=== PATIENT | female | born 1970 | race Asian ===

== ENCOUNTER 2022-10-26 22:35 | Inpatient (IN) | payer SELFPAY ==
[~2022-10-26] VITALS: Ht 162.6 cm; Wt 67.8 kg
[2022-10-26] MEDS ORDERED: AMLO-257 PO (22:43)
[2022-10-26] MEDS ORDERED: LOSA-381 PO (22:43)
[2022-10-26] MEDS ORDERED: NITROPRUSSIDE SODIUM 50 MG in DEXTROSE 5%-WATER 248 ML IV PRN (23:00)
[2022-10-26 23:04] LABS: BASOPHILS % (AUTO) 0.3 % (0.0-2.0); EOSINOPHILS % (AUTO) 2.1 % (1.0-6.0); HEMATOCRIT 43.5 % (36-46); LYMPHOCYTES # (AUTO) 4.3 K/uL (1.0-4.8); LYMPHOCYTES % (AUTO) 29.4 % (22.0-44.0); MEAN CORPUSCULAR HEMOGLOBIN 27.2 pg (26.0-34.0); MEAN CORPUSCULAR HGB CONC 32.2 G/dL (31.0-37.0); MEAN CORPUSCULAR VOLUME 84 fL (80-100); MONOCYTES # (AUTO) 0.6 K/uL (0.1-1.0); MONOCYTES % (AUTO) 4.1 % (2.0-9.0); NEUTROPHILS # (AUTO) 9.5 K/uL (1.8-7.7); NEUTROPHILS % (AUTO) 64.1 % (40.0-70.0); PLATELET COUNT (AUTO) 276 K/uL (150-450); RED BLOOD CELL COUNT(AUTO) 5.16 MIL/uL (4.00-5.20); RED CELL DISTRIBUTION WIDTH 13.4 % (11.5-14.5)
[2022-10-26 23:25] LABS: ALBUMIN 4.3 g/dL (3.4-5.0); BILIRUBIN,TOTAL 0.5 mg/dL (0.1-1.0); CALCIUM, TOTAL 9.5 mg/dL (8.8-10.5); CREATININE 1.05 mg/dL (0.60-1.30); TOTAL PROTEIN, SERUM 8.9 g/dL (6.4-8.2)
[2022-10-26 23:26] LABS: INR 0.9 (0.9-1.1); PROTHROMBIN TIME 9.8 SEC (9.4-11.6)
[2022-10-26 23:27] LABS: POTASSIUM 2.8 mmol/L (3.5-5.1)
[2022-10-26] MEDS: POTASSIUM CHL 10 MEQ/WATER 50 ML IV SCH (23:37)
[2022-10-26 23:56] LABS: MAGNESIUM 2.1 mg/dL (1.80-2.40)
[2022-10-27] MEDS: POTASSIUM CHL 10 MEQ/WATER 50 ML IV SCH ×3 (01:08→02:48)
[2022-10-27] MEDS ORDERED: ONDANSETRON HCL 4 MG/2 ML VIAL IVP PRN ×2 (01:30→10:45)
[2022-10-27] MEDS ORDERED: ACETAMINOPHEN 325 MG TABLET PO PRN ×2 (01:30→10:45)
[2022-10-27] MEDS ORDERED: 0.9% SODIUM CHLORIDE 10 ML SYRINGE IVP PRN (01:30)
[2022-10-27 02:39] LABS: APPEARANCE,URINE CLEAR (CLEAR); BILIRUBIN,URINE NEGATIVE (NEGATIVE); GLUCOSE, URINE (UA) 150-200 mg/dL (NEGATIVE); KETONES,URINE NEGATIVE (NEGATIVE); LEUKOCYTE ESTERASE ,URINE TRACE (NEGATIVE); NITRATE,URINE NEGATIVE (NEGATIVE); OCCULT BLOOD,URINE NEGATIVE (NEGATIVE); PH,URINE 7.5 (5.0-8.0); PROTEIN,URINE 100-200,SEE CONFIRM mg/dL (NEGATIVE); SPECIFIC GRAVITIY, URINE 1.011 (1.003-1.030); UROBILINOGEN,URINE <=1.0 mg/dL (<=1.0)
[2022-10-27 02:53] LABS: SULFOSALICYLIC ACID,URINE 1+ (Negative)
[2022-10-27 02:54] LABS: BACTERIA,URINE None Seen /HPF (None Seen); RBC,URINE None Seen /HPF (0-2); SQUAMOUS EPITHELIAL CELL,UR Rare /LPF (None Seen); WBC,URINE 0-2 /HPF (0-5)
[2022-10-27 06:31] LABS: ANION GAP 14 mmol/L (8-16); CALCIUM, TOTAL 9.5 mg/dL (8.8-10.5); CARBON DIOXIDE 23 mmol/L (22-29); CHLORIDE 102 mmol/L (98-107); CREATININE 0.94 mg/dL (0.60-1.30); GLOMERULAR FILTR. RATE CALC > 60 mL/min (>60); GLUCOSE,RANDOM 134 mg/dL (70-110); SODIUM SERUM 139 mmol/L (136-145)
[2022-10-27 06:36] LABS: ALANINE AMINOTRANSFERASE 15 U/L (12-78); ALKALINE PHOSPHATASE 97 U/L (46-116); ASPARTATE AMINOTRANSFERASE 39 U/L (15-37); BILIRUBIN,TOTAL 0.7 mg/dL (0.1-1.0); TOTAL PROTEIN, SERUM 8.2 g/dL (6.4-8.2)
[2022-10-27] MEDS ORDERED: ZOLPIDEM TARTRATE 5 MG TABLET PO PRN (10:45)
[2022-10-27] MEDS ORDERED: HYDROCODONE/ACETAMINOPHEN 5-325 MG TABLET PO PRN (10:45)
[2022-10-27] MEDS ORDERED: BISACODYL 10 MG RECTAL RECTAL SUPPOSITORY PR PRN (10:45)
[2022-10-27] MEDS ORDERED: MAGNESIUM HYDROXIDE SUSPENSION 30 ML UDCUP PO PRN (10:45)
[2022-10-27] MEDS ORDERED: MORPHINE SULFATE 2 MG/ML SYRINGE IVP PRN (10:45)
[2022-10-27] MEDS: NiCARDipine HCL 25 MG in SODIUM CHLORIDE 0.9% 240 ML IV PRN ×2 (11:52→21:36)
[2022-10-27] MEDS: DOCUSATE SODIUM 100 MG CAPSULE PO SCH (21:00)
[2022-10-28] VITALS: PULSE 86
[2022-10-28] MEDS: NiCARDipine HCL 25 MG in SODIUM CHLORIDE 0.9% 240 ML IV PRN ×3 (00:33→06:37)
[2022-10-28 04:00] VITALS: PULSE 83
[2022-10-28 06:03] LABS: BASOPHILS % (AUTO) 0.3 % (0.0-2.0); EOSINOPHILS % (AUTO) 0.4 % (1.0-6.0); HEMOGLOBIN 13.3 g/dL (12.0-16.0); LYMPHOCYTES # (AUTO) 3.2 K/uL (1.0-4.8); LYMPHOCYTES % (AUTO) 20.8 % (22.0-44.0); MEAN CORPUSCULAR HEMOGLOBIN 27.6 pg (26.0-34.0); MEAN CORPUSCULAR HGB CONC 32.4 G/dL (31.0-37.0); MEAN CORPUSCULAR VOLUME 85 fL (80-100); MONOCYTES # (AUTO) 0.7 K/uL (0.1-1.0); MONOCYTES % (AUTO) 4.2 % (2.0-9.0); NEUTROPHILS # (AUTO) 11.5 K/uL (1.8-7.7); NEUTROPHILS % (AUTO) 74.3 % (40.0-70.0); PLATELET COUNT (AUTO) 267 K/uL (150-450); RED BLOOD CELL COUNT(AUTO) 4.81 MIL/uL (4.00-5.20); RED CELL DISTRIBUTION WIDTH 13.6 % (11.5-14.5)
[2022-10-28 06:25] LABS: ALANINE AMINOTRANSFERASE 11 U/L (12-78); ALBUMIN 3.7 g/dL (3.4-5.0); ALKALINE PHOSPHATASE 93 U/L (46-116); ANION GAP 12 mmol/L (8-16); ASPARTATE AMINOTRANSFERASE 38 U/L (15-37); BILIRUBIN,TOTAL 1.1 mg/dL (0.1-1.0); CARBON DIOXIDE 25 mmol/L (22-29); CHLORIDE 105 mmol/L (98-107); CREATININE 0.87 mg/dL (0.60-1.30); GLOMERULAR FILTR. RATE CALC > 60 mL/min (>60); GLUCOSE,RANDOM 106 mg/dL (70-110); POTASSIUM 3.3 mmol/L (3.5-5.1); SODIUM SERUM 142 mmol/L (136-145); TOTAL PROTEIN, SERUM 7.4 g/dL (6.4-8.2)
[2022-10-28 06:27] LABS: ALANINE AMINOTRANSFERASE 13 U/L (12-78); ALBUMIN 3.7 g/dL (3.4-5.0); ALKALINE PHOSPHATASE 95 U/L (46-116); ANION GAP 9 mmol/L (8-16); ASPARTATE AMINOTRANSFERASE 39 U/L (15-37); BILIRUBIN,TOTAL 1.1 mg/dL (0.1-1.0); CALCIUM, TOTAL 9.1 mg/dL (8.8-10.5); CARBON DIOXIDE 24 mmol/L (22-29); CHLORIDE 105 mmol/L (98-107); CREATININE 0.86 mg/dL (0.60-1.30); GLOMERULAR FILTR. RATE CALC > 60 mL/min (>60); GLUCOSE,RANDOM 106 mg/dL (70-110); POTASSIUM 3.2 mmol/L (3.5-5.1); SODIUM SERUM 138 mmol/L (136-145); TOTAL PROTEIN, SERUM 7.5 g/dL (6.4-8.2)
[2022-10-28] MEDS ORDERED: POTASSIUM CHL 10 MEQ/WATER 50 ML IV PRN (07:30)
[2022-10-28] MEDS ORDERED: POTASSIUM CHLORIDE 20 MEQ ER TABLET PO PRN ×2 (07:30)
[2022-10-28 08:00] VITALS: PULSE 103
[2022-10-28] MEDS: AmLODIPine BESYLATE 5 MG TABLET PO SCH (09:25)
[2022-10-28] MEDS: PANTOPRAZOLE SODIUM 40 MG DR TABLET PO SCH (09:25)
[2022-10-28] MEDS: DOCUSATE SODIUM 100 MG CAPSULE PO SCH ×2 (09:25→21:02)
[2022-10-28] MEDS: LOSARTAN POTASSIUM 25 MG TABLET PO SCH (09:26)
[2022-10-28 12:00] VITALS: PULSE 84
[2022-10-28] MEDS ORDERED: LABETALOL HCL 5 MG/ML 20 ML VIAL IVP ONE (14:51)
[2022-10-28] MEDS ORDERED: SODIUM CHLORIDE 0.9% 500 ML IV ONE (14:52)
[2022-10-28] MEDS: LABETALOL HCL 5 MG/ML 20 ML VIAL IVP PRN ×3 (15:06→21:02)
[2022-10-28 16:00] VITALS: PULSE 71
[2022-10-28 20:00] VITALS: BP 162/103; PULSE 71; RESP 14; TEMP 98.2
[2022-10-29] VITALS (7 sets, daily range): BP systolic 149–179; BP diastolic 93–111; PULSE 66–72; RESP 14–20; TEMP 98–98.3
[2022-10-29] MEDS: LABETALOL HCL 5 MG/ML 20 ML VIAL IVP PRN ×4 (05:11→18:42)
[2022-10-29 07:02] LABS: ANION GAP 12 mmol/L (8-16); CALCIUM, TOTAL 9.3 mg/dL (8.8-10.5); CARBON DIOXIDE 25 mmol/L (22-29); CHLORIDE 103 mmol/L (98-107); CREATININE 0.85 mg/dL (0.60-1.30); GLOMERULAR FILTR. RATE CALC > 60 mL/min (>60); GLUCOSE,RANDOM 105 mg/dL (70-110); POTASSIUM 4.1 mmol/L (3.5-5.1); SODIUM SERUM 140 mmol/L (136-145)
[2022-10-29] MEDS: DOCUSATE SODIUM 100 MG CAPSULE PO SCH ×2 (08:10→21:43)
[2022-10-29] MEDS: PANTOPRAZOLE SODIUM 40 MG DR TABLET PO SCH (08:10)
[2022-10-29] MEDS: LOSARTAN POTASSIUM 25 MG TABLET PO SCH (08:10)
[2022-10-29] MEDS: AmLODIPine BESYLATE 5 MG TABLET PO SCH (08:10)
[2022-10-29] MEDS: AmLODIPine BESYLATE 10 MG TABLET PO SCH (09:00)
[2022-10-29] MEDS ORDERED: LOSARTAN POTASSIUM 25 MG TABLET PO ONE (09:00)
[2022-10-29] MEDS ORDERED: LOSARTAN POTASSIUM 50 MG TABLET PO SCH (09:00)
[2022-10-29] MEDS ORDERED: AmLODIPine BESYLATE 5 MG TABLET PO ONE (09:00)
[2022-10-29] MEDS: CloNIDine HCL 0.1 MG TABLET PO PRN (13:33)
[2022-10-29] MEDS: LOSARTAN POTASSIUM 50 MG TABLET PO SCH (21:43)
[2022-10-30] VITALS (8 sets, daily range): BP systolic 136–179; BP diastolic 67–105; PULSE 62–70; RESP 18; TEMP 97.9–99.5
[2022-10-30] MEDS: LOSARTAN POTASSIUM 50 MG TABLET PO SCH ×2 (08:32→20:31)
[2022-10-30] MEDS: PANTOPRAZOLE SODIUM 40 MG DR TABLET PO SCH (08:32)
[2022-10-30] MEDS: AmLODIPine BESYLATE 10 MG TABLET PO SCH (08:32)
[2022-10-30] MEDS: DOCUSATE SODIUM 100 MG CAPSULE PO SCH ×2 (08:32→20:31)
[2022-10-30] MEDS: LABETALOL HCL 5 MG/ML 20 ML VIAL IVP PRN (12:30)
[2022-10-30 14:08] LABS: HEMOGLOBIN 14.1 g/dL (12.0-16.0); MONOCYTES # (AUTO) 0.5 K/uL (0.1-1.0); NEUTROPHILS # (AUTO) 7.7 K/uL (1.8-7.7)
[2022-10-30 14:15] LABS: BASOPHILS % (AUTO) 0.7 % (0.0-2.0); EOSINOPHILS % (AUTO) 1.6 % (1.0-6.0); HEMATOCRIT 43.3 % (36-46); LYMPHOCYTES # (AUTO) 2.2 K/uL (1.0-4.8); MEAN CORPUSCULAR HEMOGLOBIN 27.4 pg (26.0-34.0); MEAN CORPUSCULAR HGB CONC 32.5 G/dL (31.0-37.0); MEAN CORPUSCULAR VOLUME 84 fL (80-100); MONOCYTES % (AUTO) 4.3 % (2.0-9.0); NEUTROPHILS % (AUTO) 72.4 % (40.0-70.0); RED BLOOD CELL COUNT(AUTO) 5.14 MIL/uL (4.00-5.20); RED CELL DISTRIBUTION WIDTH 13.5 % (11.5-14.5)
[2022-10-30 15:21] LABS: PLATELET COUNT (AUTO) 260 K/uL (150-450); PLATELET MORPHOLOGY COMMENT LARGE PLTS PRESENT
[2022-10-30] MEDS ORDERED: HYDROCHLOROTHIAZIDE 25 MG TABLET PO ONE (15:30)
[2022-10-30] MEDS: CloNIDine HCL 0.1 MG TABLET PO PRN (15:54)
[2022-10-31 04:00] VITALS: BP 148/92; PULSE 61; RESP 16; TEMP 98.5
[2022-10-31 07:28] LABS: BASOPHILS % (AUTO) 0.3 % (0.0-2.0); EOSINOPHILS % (AUTO) 3.3 % (1.0-6.0); HEMATOCRIT 43.7 % (36-46); HEMOGLOBIN 14.2 g/dL (12.0-16.0); LYMPHOCYTES # (AUTO) 3.2 K/uL (1.0-4.8); MEAN CORPUSCULAR HEMOGLOBIN 27.6 pg (26.0-34.0); MEAN CORPUSCULAR HGB CONC 32.6 G/dL (31.0-37.0); MEAN CORPUSCULAR VOLUME 85 fL (80-100); MONOCYTES # (AUTO) 0.6 K/uL (0.1-1.0); MONOCYTES % (AUTO) 6.7 % (2.0-9.0); NEUTROPHILS # (AUTO) 5.2 K/uL (1.8-7.7); NEUTROPHILS % (AUTO) 55.7 % (40.0-70.0); PLATELET COUNT (AUTO) 298 K/uL (150-450); RED BLOOD CELL COUNT(AUTO) 5.15 MIL/uL (4.00-5.20); RED CELL DISTRIBUTION WIDTH 13.6 % (11.5-14.5)
[2022-10-31 07:37] LABS: CALCIUM, TOTAL 9.6 mg/dL (8.8-10.5); CREATININE 1.17 mg/dL (0.60-1.30); POTASSIUM 3.7 mmol/L (3.5-5.1)
[2022-10-31 08:43] VITALS: BP 139/95; PULSE 64; RESP 16; TEMP 98.1
[2022-10-31] MEDS: PANTOPRAZOLE SODIUM 40 MG DR TABLET PO SCH (08:45)
[2022-10-31] MEDS: HYDROCHLOROTHIAZIDE 25 MG TABLET PO SCH (08:45)
[2022-10-31] MEDS: DOCUSATE SODIUM 100 MG CAPSULE PO SCH ×2 (08:45→21:02)
[2022-10-31] MEDS: LOSARTAN POTASSIUM 50 MG TABLET PO SCH ×2 (08:46→21:02)
[2022-10-31] MEDS: AmLODIPine BESYLATE 10 MG TABLET PO SCH ×2 (08:46→21:02)
[2022-10-31 12:10] VITALS: BP 172/110; PULSE 68; RESP 18; TEMP 98.3
[2022-10-31] MEDS: CloNIDine HCL 0.1 MG TABLET PO PRN (12:13)
[2022-10-31 13:20] VITALS: BP 134/77
[2022-10-31 15:37] VITALS: BP 131/87; PULSE 65; RESP 18; TEMP 98.3
[2022-10-31] MEDS ORDERED: DiphenhydrAMINE HCL 25 MG CAPSULE PO ONE (19:00)
[2022-10-31] MEDS ORDERED: VITAMINS A & D 113 GM OINTMENT TP PRN (19:00)
[2022-10-31 20:00] VITALS: BP 160/89; PULSE 72; RESP 16; TEMP 98.5
[2022-11-01] VITALS: BP 108/77; PULSE 66; RESP 16; TEMP 98.7
[2022-11-01 04:00] VITALS: BP 127/78; PULSE 67; RESP 18; TEMP 98.1
[2022-11-01 08:13] VITALS: BP 137/85; PULSE 65; RESP 20; TEMP 97.9
[2022-11-01] MEDS: AmLODIPine BESYLATE 10 MG TABLET PO SCH (08:46)
[2022-11-01] MEDS: PANTOPRAZOLE SODIUM 40 MG DR TABLET PO SCH (08:46)
[2022-11-01] MEDS: LOSARTAN POTASSIUM 50 MG TABLET PO SCH (08:46)
[2022-11-01] MEDS: DOCUSATE SODIUM 100 MG CAPSULE PO SCH (08:46)
[2022-11-01] MEDS: HYDROCHLOROTHIAZIDE 25 MG TABLET PO SCH (08:46)
[2022-11-01] MEDS ORDERED: ATOR20TA PO (10:19)
[2022-11-01] MEDS ORDERED: HYDR25TA2 PO (10:20)
[2022-11-01 11:27] VITALS: BP 150/98; PULSE 66; RESP 20; TEMP 97.8
== END 2022-11-01 11:25 | disposition home or self-care (01) | DRG 65 ==
LOC: EMS 22:37 → ICUN 10-27 01:21 → ICU 10-27 18:30 → 5S 10-29 20:29
PROVIDERS: ADMIT Internal Medicine; ATTEND Internal Medicine
DX: I61.4 Nontraumatic intracerebral hemorrhage in cerebellum (principal); I16.1 Hypertensive emergency; R65.10 Systemic inflammatory response syndrome (SIRS) of non-infectious origin without acute organ dysfunction; R73.9 Hyperglycemia, unspecified; E87.6 Hypokalemia; Z79.899 Other long term (current) drug therapy; Z91.148 Patient's other noncompliance with medication regimen for other reason
CPT/HCPCS: 70450; 71045; 80048; 80053; 81001; 81002; 82550; 83735; 83880; 84484; 85025; 85610; 85730; 87081; 92610; 93005; 93306; 97116; 97162; 97530; 99291; G0378; J2405; J3480; J3490; J7040; J7050; J7060; 36415-L1; 36415-TC